=== PATIENT | female | born 1955 | race Caucasian/White ===

== ENCOUNTER → 2016-12-28 | Outpatient (CLI) | payer MEDICARE ==
[~2016-12-28] MED LIST: ALTACE10 MG PO; AMLO2.5T PO; ASPI-COR81 M1 PO; CYMBALTA60 M1 PO; DULOXETINE 30MG30 MG PO; DUONEB 3 MG/3 ML3 ML IH; GABAPENTIN800 MG PO; HABITROL21 MG/24 H TD; LASIX80 MG PO; METFORMIN500 MG PO; NEURONTIN600 MG PO; NEXIUM40 MG PO; OPANA ER40 MG PO; OXYCODONE CR10 MG PO; OXYCONTIN 20MG.20 MG PO; PLAVIX75 MG PO; PRAVASTATIN 20M20 MG PO; SPIRIVA HA1 PUFF/INH; SYMBICORT1 AE1 IH; TOPAMAX25 M1 PO; TOPAMAX50 MG PO; XANAX 1MG TABLET1 MG PO
[2016-12-28 18:21] LABS: HEMOGLOBIN 9.3 g/dL (12.2-16.2); LYMPH # 3.6 K/mm3 (0.7-4.5); LYMPH % 15.5 % (10-50.0)
[2016-12-28 19:30] LABS: NEUTROPHILS 85 % (42-76)
[2016-12-28 19:54] LABS: BUN 27 mg/dL (7-18)
[2016-12-28 21:13] LABS: GFR (ESTIMATED) 73 ML/MIN (59-)
[2016-12-30 08:46] LABS: Vitamin D, 25-Hydroxy 18.7 ng/mL (30.0-100.0)
== END ==
LOC: LAB 18:01
PROVIDERS: Nurse Practitioner Family
DX: D50.9 Iron deficiency anemia, unspecified (principal); E55.9 Vitamin D deficiency, unspecified

== ENCOUNTER → 2017-01-11 | Outpatient (CLI) | payer MEDICARE ==
[2017-01-11 19:07] LABS: HEMOGLOBIN 9.8 g/dL (12.2-16.2)
[2017-01-11 19:08] LABS: LYMPH # 3.7 K/mm3 (0.7-4.5); LYMPH % 33.1 % (10-50.0)
[2017-01-11 19:39] LABS: BUN 22 mg/dL (7-18)
[2017-01-11 19:57] LABS: GFR (ESTIMATED) 86 ML/MIN (59-)
== END ==
LOC: LAB 17:34
PROVIDERS: Nurse Practitioner Family
DX: D72.829 Elevated white blood cell count, unspecified (principal)